=== PATIENT | male | born 1975 | race Asian ===

== ENCOUNTER 2016-07-19 19:29 | Emergency (ER) | payer SELFPAY ==
[~2016-07-19] VITALS: Ht 170.2 cm; Wt 85.5 kg
[~2016-07-19 19:29] MED LIST: IBUP-1681 PO
[2016-07-19] MEDS ORDERED: ASPI-556 PO (19:42)
[2016-07-19] MEDS ORDERED: AMLO-512 PO (19:42)
[2016-07-19 19:57] LABS: GLUCOSE,POINT OF CARE 148 MG/DL (70-110)
[2016-07-19] MEDS ORDERED: MORPHINE SULFATE 4 MG/ML SYRINGE IM ONE (20:15)
[2016-07-19] MEDS ORDERED: ONDANSETRON HCL 4 MG/2 ML VIAL IM ONE (20:15)
[2016-07-19] MEDS ORDERED: KETOROLAC TROMETHAMINE 60 MG/2 ML VIAL IM ONE (22:30)
[2016-07-19] MEDS ORDERED: CYCLOBENZAPRINE HCL 10 MG TABLET PO ONE (22:30)
[2016-07-19 22:40] VITALS: BP 137/81
== END 2016-07-19 22:49 | disposition home or self-care (01) ==
LOC: EMS 19:30
DX: S50.11XA Contusion of right forearm, initial encounter (principal); E11.9 Type 2 diabetes mellitus without complications; I10 Essential (primary) hypertension; Z79.82 Long term (current) use of aspirin; V43.52XA Car driver injured in collision with other type car in traffic accident, initial encounter; Y93.89 Activity, other specified; Y92.488 Other paved roadways as the place of occurrence of the external cause; Y99.8 Other external cause status
CPT/HCPCS: 70450; 71010; 72125; 72128; 72131; 73090; 82962; 96372; 99284; J1885; J2270; J2405